=== PATIENT | male | born 1960 | race Caucasian/White ===

== ENCOUNTER → 2020-08-20 | Outpatient (CLI) | payer OTHER ==
[~2020-08-20] MED LIST: ACETAMINOPHEN325 M1 PO; ADVIL200 MG PO; ALLEGRA60 MG PO; BIAXIN; COZAAR 25 MG TA25 M2 PO; FLEXERIL PO; HYDROCODON-ACE1 EAC7 PO; HYDROCODON-ACE1 EACH PO; KEFLEX500 M1 PO; LOSARTAN-HCTZ1 EACH PO; PERCOCET 5-3251 EACH PO
== END ==
LOC: SJCVCIMAG 07:44
PROVIDERS: ATTEND Internal Medicine
DX: I49.3 Ventricular premature depolarization (principal); I35.1 Nonrheumatic aortic (valve) insufficiency; R00.0 Tachycardia, unspecified; I10 Essential (primary) hypertension